=== PATIENT | male | born 1995 | race Caucasian/White ===

== ENCOUNTER 2024-06-03 16:56 | Emergency (ER) | payer BC ==
[~2024-06-03] VITALS: Ht 190.5 cm; Wt 70.0 kg
[~2024-06-03 16:56] MED LIST: simethicone 40mg/0.6ml oral drops 30ml ONE
[2024-06-03] MEDS: ondansetron/PF 4mg/2ml inj IV ONE ×2 (17:08→17:12)
[2024-06-03] MEDS: normal saline 1000ml 1,000 ML IV ONE ×2 (17:09→17:52)
[2024-06-03] MEDS: glucagon, human recombinant 1mg kit IV ONE (17:12)
[2024-06-03] MEDS ORDERED: NO HOME MEDS (17:54)
[2024-06-03] MEDS ORDERED: nitroGLYCERIN 0.4mg SUBLingual tab SL PRN (18:00)
[2024-06-03 18:23] LABS: BASOPHILS # (AUTO) 0.1 X10'3 (0-0.2); BASOPHILS % (AUTO) 0.8 % (0-1); EOSINOPHILS # (AUTO) 0.3 X10'3 (0-0.9); EOSINOPHILS % (AUTO) 4.7 % (0-6); HEMOGLOBIN 13.9 g/dl (14.0-17.9); LYMPHOCYTES # (AUTO) 1.1 X10'3 (1.1-4.8); MEAN CORPUSCULAR HEMOGLOBIN 30.2 PG (27.0-31.0); MEAN CORPUSCULAR HGB CONC 33.9 g/dL (33.0-36.5); MEAN CORPUSCULAR VOLUME 89.1 FL (78-98); MEAN PLATELET VOLUME 7.5 FL (7.4-10.4); MONOCYTES # (AUTO) 0.5 X10'3 (0-0.9); MONOCYTES % (AUTO) 7.8 % (2-12); NEUTROPHILS # (AUTO) 4.3 X10'3 (1.8-7.7); NEUTROPHILS % (AUTO) 68.7 % (42-75); PLATELET COUNT 261 X10'3 (140-440); RED CELL DISTRIBUTION WIDTH 13.4 % (11.5-14.5); WHITE BLOOD COUNT 6.2 X10'3 (4.5-11.0)
[2024-06-03 18:35] VITALS: BP 130/73; PULSE 64; RESP 13
[2024-06-03 18:38] LABS: ALANINE AMINOTRANSFERASE 16 U/L (12-78); ALBUMIN/GLOBULIN RATIO 1.4 (1.1-1.5); ALKALINE PHOSPHATASE 62 IU/L (46-116); ANION GAP 7 (8-16); ASPARTATE AMINO TRANSFERASE 18 U/L (10-37); BILIRUBIN,TOTAL 0.7 MG/DL (0.1-1.0); BLOOD UREA NITROGEN 13 MG/DL (7-18); CALCIUM 8.2 MG/DL (8.5-10.1); CHLORIDE 109 MMOL/L (99-107); CREATININE 0.93 MG/DL (0.60-1.10); GLUCOSE 101 MG/DL (70-104); POTASSIUM 3.4 MMOL/L (3.5-5.1); SODIUM 142 MMOL/L (135-145); TOTAL CARBON DIOXIDE 26.2 MMOL/L (24-32); TOTAL PROTEIN 6.9 G/DL (6.4-8.2); eCRCL 114 ML/MIN; eGFR > 90 ML/MIN
[2024-06-03] MEDS ORDERED: MIDAZolam 1 MG/ML 5ML VIAL ONE ×3 (18:45→20:17)
[2024-06-03] MEDS ORDERED: fentaNYL/PF 50MCG/1 ML 2ML syringe ONE ×3 (18:45→20:17)
[2024-06-03] MEDS ORDERED: LIDOcaine 2% Viscous 15ml cup ONE (18:45)
[2024-06-03] MEDS ORDERED: proCHLORperazine 10 MG/2 ml inj ONE (19:38)
[2024-06-03] MEDS ORDERED: diphenhydrAMINE 50 mg/ml inj ONE (19:59)
[2024-06-03 20:40] VITALS: BP 92/57; PULSE 66; RESP 20; O2SAT 96
[2024-06-03 20:50] VITALS: BP 94/53; PULSE 61; RESP 21; O2SAT 95
[2024-06-03 21:00] VITALS: BP 91/54; PULSE 62; RESP 20; O2SAT 96
[2024-06-03 21:31] VITALS: TEMP 96.8
[2024-06-03] MEDS ORDERED: OMEP40CA21 PO (22:11)
[2024-06-03 23:38] VITALS: BP 112/65; PULSE 66; RESP 15; O2SAT 99
== END 2024-06-03 23:40 | disposition home or self-care (01) ==
LOC: ER 16:57
DX: T18.128A Food in esophagus causing other injury, initial encounter (principal); W44.F3XA Food entering into or through a natural orifice, initial encounter; Y93.89 Activity, other specified; Y92.89 Other specified places as the place of occurrence of the external cause; Y99.8 Other external cause status
CPT/HCPCS: 36415; 43239; 43247; 43249; 80053; 85025; 96361; 96374; 96375; 99285; C1726; J0780; J1200; J1610; J2250; J2405; J3010; J7030; Z7512; 99152; 99153; A4620; C1889